=== PATIENT | female | born 1990 | race American Indian/Alaskan Native ===

== ENCOUNTER 2016-08-22 20:34 | Emergency (ER) | payer SELFPAY ==
[2016-08-22] MEDS ORDERED: NORCO 5/325 ONE (22:37)
[2016-08-22] MEDS ORDERED: NORCO 5/325 PO ONE (22:38)
[2016-08-22] MEDS ORDERED: TORADOL IM ONE (23:30)
--- NOTE | 2016-08-22 23:39 | Emergency Department Report ---
ED Upper Extremity Inj HPI - General Chief Complaint: Extremity Injury, Upper Stated Complaint: POSS BROKEN FINGER RT HAND Time Seen by Provider: 08/22/16 23:29 Source: patient Mode of arrival: Ambulatory Limitations: No Limitations - History of Present Illness Initial Comments: Patient presents with right hand pain and swelling after getting it caught between 2 trees that had been chopped down. Complaint: Injury to:: right, hand -: Sudden Other Extremity Injury: Hand: Right Other Injuries: none Handedness: right Place: work Severity scale (0 -10): 10 Improves With: medication Worsens With: movement of extremity Context: crush Associated Symptoms: denies other symptoms Treatments Prior to Arrival: other (ice, elevation, advil which patient admits to helping) - Related Data Previous Rx's Medication Instructions Recorded Last Taken Type Ibuprofen [Motrin 800 MG tab] 800 mg PO Q8HR PRN #20 tablet 08/22/16 Unknown Rx Allergies Allergy/AdvReac Type Severity Reaction Status Date / Time hydromorphone HCl Allergy Swelling Verified 08/22/16 21:10 [From Dilaudid] Iodinated Contrast Media - Allergy Rash Verified 08/22/16 21:10 IV Dye Penicillins Allergy Swelling Verified 08/22/16 21:10 ED Review of Systems ROS: Stated complaint: POSS BROKEN FINGER RT HAND Other details as noted in HPI Constitutional: denies: chills, fever Respiratory: denies: cough, shortness of breath, wheezing Cardiovascular: denies: chest pain, palpitations Gastrointestinal: denies: abdominal pain, nausea, diarrhea Musculoskeletal: as per HPI Skin: denies: rash, lesions Neurological: denies: headache, weakness, paresthesias ED Past Medical Hx - Past Medical History Previous Medical History?: Yes Additional medical history: bronchitis - Surgical History Past Surgical History?: Yes Additional Surgical History: ovarian cyst - Medications Home Medications: Home Medications Medication Instructions Recorded Confirmed Last Taken Type Ibuprofen [Motrin 800 MG tab] 800 mg PO Q8HR PRN #20 tablet 08/22/16 Unknown Rx ED Physical Exam - General Limitations: No Limitations General appearance: alert, in no apparent distress - Respiratory Respiratory exam: Present: normal lung sounds bilaterally. Absent: respiratory distress - Cardiovascular Cardiovascular Exam: Present: regular rate, normal rhythm. Absent: systolic murmur, diastolic murmur, rubs, gallop - GI/Abdominal GI/Abdominal exam: Present: soft, normal bowel sounds - Expanded Upper Extremity Exam Right Shoulder Exam: Present: normal inspection, full ROM. Absent: tenderness, swelling Upper Arm exam: Present: normal inspection, full ROM. Absent: tenderness, swelling Elbow exam: Present: normal inspection, full ROM. Absent: tenderness, swelling Forearm Wrist exam: Present: normal inspection, full ROM. Absent: tenderness, swelling Hand Wrist exam: Present: full ROM (but with pain), tenderness (right posterior hand), swelling (right posterior hand), ecchymosis (right posterior hand) Hand L/R Back: 1 - swelling, echymosis, ttp Neuro motor exam: Present: wrist extension intact, thumb opposition intact, thumb IP flexion intact Neurosensory exam: Present: radial nerve intact, ulnar nerve intact Vascular: Present: normal capillary refill. Absent: vascular compromise ED Course Vital Signs 08/22/16 21:04 Temperature 98.1 F Pulse Rate 83 Respiratory 18 Rate Blood Pressure 113/76 O2 Sat by Pulse 100 Oximetry ED Medical Decision Making - Medical Decision Making patient presents after right hand injury with swelling and pain, I do not see any obvious fracture. I will give ibuprofen 800mg bid for pain and wrap in BINTA bandage for comfort. - Differential Diagnosis sprain, fracture Critical Care Time: No Critical care attestation.: If time is entered above; I have spent that time in minutes in the direct care of this critically ill patient, excluding procedure time. ED Disposition Clinical Impression: Sprain of hand, right Disposition: DISCHARGED TO HOME OR SELFCARE Is pt being admited?: No Does the pt Need Aspirin: No Condition: Stable Instructions: Hand Sprain (ED) Additional Instructions: Rest, ice, and elevation can aid in reducing pain and swelling. Follow up if pain unrelieved by medication or worsening symptoms. Prescriptions: Ibuprofen [Motrin 800 MG tab] 800 mg PO Q8HR PRN #20 tablet PRN Reason: Pain Referrals: PRIMARY CARE, [Primary Care Provider] - 3-5 Days Forms: Work/School Release Form(ED) Time of Disposition: 23:45
--- NOTE | 2016-08-23 00:16 | XRay Report ---
FINAL REPORT EXAM: XR HAND 3 RT HISTORY: swelling and pain COMPARISON: None available. FINDINGS: Three views the right hand obtained. Soft tissue swelling at the dorsum of the hand. Bony structures are intact. Joint spaces are preserved. No acute fracture dislocation. IMPRESSION: No acute bony abnormality. Soft tissue swelling at the dorsum of the hand.
[2016-08-23 00:26] VITALS: BP 111/70
== END 2016-08-23 00:36 | disposition home or self-care (01) ==
LOC: ED 20:34
DX: S63.91XA Sprain of unspecified part of right wrist and hand, initial encounter (principal); Z88.0 Allergy status to penicillin; Z91.041 Radiographic dye allergy status; Z88.6 Allergy status to analgesic agent; W23.0XXA Caught, crushed, jammed, or pinched between moving objects, initial encounter; Y93.89 Activity, other specified; Y99.8 Other external cause status; Y92.89 Other specified places as the place of occurrence of the external cause
CPT/HCPCS: 29125; 73130; 96372; 99284; J1885